=== PATIENT | female | born 1985 | race African-American/Black ===

== ENCOUNTER 2020-05-08 15:02 | Emergency (ER) | payer SELFPAY ==
--- NOTE | 2020-05-08 15:11 | ER ---
Nurse's Notes [facility] Name: Rina Brasher Age: 34 yrs Sex: Female : 1985 Arrival Date: 05/08/2020 Time: 15:03 Bed Waiting Private MD: Diagnosis: Presentation: 05/08 15:09 Note Pt states, "I don't think I want to wait 3 hours. I will just go across the [address]". ED Course: 15:03 Patient arrived in ED. as Administered Medications: No medications were administered Outcome: 15:10 Patient left the ED. ca1 Signatures: Brenda Edward Cheryl RN RN ca1
== END 2020-05-08 15:10 | disposition left against medical advice (07) ==
LOC: ER 15:02
DX: Z02.9 Encounter for administrative examinations, unspecified (principal)